=== PATIENT | female | born 1950 | race Caucasian/White ===

== ENCOUNTER → 2017-01-13 | Outpatient (CLI) | payer OTHER | END | disposition home or self-care (01) | LOC: CFH 13:22 | PROVIDERS: ATTEND Family Medicine | DX: Z12.31 Encounter for screening mammogram for malignant neoplasm of breast (principal) | CPT/HCPCS: G0202 ==

== ENCOUNTER 2017-07-24 03:25 | Emergency (ER) | payer OTHER ==
[~2017-07-24] VITALS: Ht 162.6 cm; Wt 53.2 kg
[2017-07-24] MEDS ORDERED: PLEASE ENTER ALLERGIES MC SCH (04:00)
[2017-07-24] MEDS ORDERED: HYDROmorphone 1 MG/ML, 1ML IM ONE (04:00)
[2017-07-24] MEDS ORDERED: LIDOCAINE 1%, 20ML INFIL ONE (04:00)
[2017-07-24] MEDS ORDERED: HYDROmorphone 2 MG/ML, 1ML ONE (04:10)
[2017-07-24 05:55] VITALS: BP 114/68
== END 2017-07-24 05:57 | disposition home or self-care (01) ==
LOC: ED 05:05
DX: S06.0X0A Concussion without loss of consciousness, initial encounter (principal); S01.81XA Laceration without foreign body of other part of head, initial encounter; S29.012A Strain of muscle and tendon of back wall of thorax, initial encounter; S39.012A Strain of muscle, fascia and tendon of lower back, initial encounter; W19.XXXA Unspecified fall, initial encounter; Y93.89 Activity, other specified; Y92.091 Bathroom in other non-institutional residence as the place of occurrence of the external cause; Y99.8 Other external cause status
CPT/HCPCS: 12013; 70450; 72072; 72110; 72170; 96372; 99284; J1170

== ENCOUNTER → 2018-09-17 | Outpatient (CLI) | payer OTHER ==
[~2018-09-17] MED LIST: DIAZ10TA PO
== END | disposition home or self-care (01) ==
LOC: CFH 12:55
PROVIDERS: ATTEND Family Medicine
DX: M43.24 Fusion of spine, thoracic region (principal); M43.26 Fusion of spine, lumbar region; J18.9 Pneumonia, unspecified organism
CPT/HCPCS: 71046

== ENCOUNTER 2018-12-12 12:57 | Emergency (ER) | payer OTHER ==
[~2018-12-12] VITALS: Ht 152.4 cm; Wt 45.7 kg
--- NOTE | 2018-12-12 13:35 | NUR ---
THIS IS A 68 YO FEMALE C/O INTERMITTENT BLURRED VISION AND CONT BRUISING AFTER A MGLF APPROX 2 WEEKS AGO. PT CURRENTLY DENIES BLURRED VISION, DIZZINESS OR N/V. PT ALSO STATES THAT THE BRUSING IS DECREASED FROM THE ORIGINAL FALL. PT ON CONT BP AND O2 MONITORS. CALL LIGHT WITHIN REACH. WILL CONT TO MONITOR PT.
--- NOTE | 2018-12-12 14:59 | NUR ---
PT TO CT SCAN VIA GURNEY AT THIS TIME. PT AO X 4. SKIN PWD. RESP EVEN AND UNLABORED. NAD NOTED.
[2018-12-12 15:37] VITALS: BP 137/89
== END 2018-12-12 14:10 ==
LOC: ED 14:04
DX: S00.83XA Contusion of other part of head, initial encounter (principal); F07.81 Postconcussional syndrome; W01.10XA Fall on same level from slipping, tripping and stumbling with subsequent striking against unspecified object, initial encounter; Y93.89 Activity, other specified; Y92.89 Other specified places as the place of occurrence of the external cause; Y99.8 Other external cause status
CPT/HCPCS: 70450; 99284

== ENCOUNTER 2019-07-08 15:33 | Emergency (ER) | payer OTHER ==
[~2019-07-08] VITALS: Ht 152.4 cm; Wt 45.6 kg
[2019-07-08] MEDS ORDERED: DIAZEPAM 5 MG TABLET PO ONE (16:00)
[2019-07-08] MEDS ORDERED: DIAZEPAM 5 MG TABLET ONE (16:01)
[2019-07-08 16:21] LABS: BASOPHILS # (AUTO) 0.03 x10^3/uL (0-0.1); BASOPHILS % (AUTO) 0 % (0-1); EOSINOPHILS # (AUTO) 0.15 x10^3/uL (0-0.4); EOSINOPHILS % (AUTO) 1 % (1-7); LYMPHOCYTES # (AUTO) 1.63 x10^3/uL (1-3.4); LYMPHOCYTES % (AUTO) 16 % (22-44); MD NO; MEAN CORPUSCULAR HEMOGLOBIN 32.7 pg (27.0-34.8); MEAN CORPUSCULAR HGB CONC 34.2 g/dL (32.4-35.8); MEAN CORPUSCULAR VOLUME 95.6 fL (80-100); MEAN PLATELET VOLUME 9.5 fL (7.4-10.4); MONOCYTES # (AUTO) 0.96 x10^3/uL (0.2-0.8); MONOCYTES % (AUTO) 9 % (2-9); NEUTROPHILS # (AUTO) 7.69 x10^3/uL (1.8-6.8); NEUTROPHILS % (AUTO) 73 % (42-75); PLATELET COUNT 283 x10^3/uL (130-400); RED BLOOD COUNT 4.13 x10^6/uL (3.82-5.3); RED CELL DISTRIBUTION WIDTH 15.6 % (9.6-15.2)
[2019-07-08 16:30] LABS: ALBUMIN 4.5 g/dL (3.4-5.0); ANION GAP 8 mmol/L (5-15); CALCIUM 9.1 mg/dL (8.5-10.1); CHLORIDE 105 mmol/L (98-107)
[2019-07-08 16:34] LABS: TROPONIN I < 0.015 ng/mL (0.000-0.045)
[2019-07-08] MEDS ORDERED: POTASSIUM CHLORIDE 20 MEQ PACKET PO ONE (17:00)
--- NOTE | 2019-07-08 17:13 | NUR ---
LATE ENTRY FOR 161, DR COHEN AT BEDSIDE. PT APPEARS VERY ANXIOUS, C/O HIGH BP DR COHEN COMPLETED MANUAL BP 160/80. PT STATES SHE HAS ANXIETY AND HER PMD "TOOK ME OFF ALL OF MY MEDICATIONS" PLAN OF CARE DISCUSSED AND ORDEERS REC'D. CALL LIGHT IN REACH, WARM BLANKETS PROVIDED.
[2019-07-08 17:45] VITALS: BP 158/84
--- NOTE | 2019-07-08 18:03 | NUR ---
Patient/Caregiver given discharge instructions and they have confirmed that they understand the instructions. Patient ambulatory with wheeled walker. Pt in wheelchair to d/c
== END 2019-07-08 18:04 | disposition home or self-care (01) ==
LOC: ED 17:20
DX: E87.6 Hypokalemia (principal); F41.1 Generalized anxiety disorder; R51 Headache; Z72.89 Other problems related to lifestyle
CPT/HCPCS: 36415; 71045; 80048; 82040; 84484; 85025; 93005; 99283